=== PATIENT | female | born 1980 | race African-American/Black ===

== ENCOUNTER → 2021-06-18 | Emergency (ER) | payer MEDICAID ==
[~2021-06-18] VITALS: Ht 154.9 cm; Wt 59.9 kg
[~2021-06-18] MED LIST: ACETAMINOPHEN 325 MG TAB PO ONE
[2021-06-18 23:29] VITALS: BP 97/78
== END | disposition left against medical advice (07) ==
LOC: ER 23:31
DX: M54.5 Low back pain (principal); R20.0 Anesthesia of skin; Z53.21 Procedure and treatment not carried out due to patient leaving prior to being seen by health care provider